=== PATIENT | female | born 1945 | race Caucasian/White ===

== ENCOUNTER → 2016-12-28 | Outpatient (CLI) | payer MEDICARE | END | disposition home or self-care (01) | LOC: RAH 08:10 | PROVIDERS: ATTEND Internal Medicine Hematology & Oncology | DX: R22.9 Localized swelling, mass and lump, unspecified (principal); Z79.82 Long term (current) use of aspirin; Z88.0 Allergy status to penicillin; Z86.010 Personal history of colon polyps; Z85.3 Personal history of malignant neoplasm of breast; Z87.891 Personal history of nicotine dependence | CPT/HCPCS: 38505 ==

== ENCOUNTER → 2019-05-09 | Outpatient (CLI) | payer MEDICARE ==
[~2019-05-09] MED LIST: APIX5TAB PO; CALC PO; FIBER PO; HYDR-4457 PO; IOHEXOL 350 MG/ML 100ML INFUS..BTL IV ONE; LEVO25TA54 PO; METO-391 PO; ONDA4TAB4 PO; POTASSIUM PO; VIT D PO
== END | disposition home or self-care (01) ==
LOC: RAH 09:23
PROVIDERS: ATTEND Internal Medicine Gastroenterology
DX: N13.30 Unspecified hydronephrosis (principal); N13.4 Hydroureter; I51.7 Cardiomegaly
CPT/HCPCS: 74178; Q9967

== ENCOUNTER → 2019-05-16 | Outpatient (CLI) | payer MEDICARE ==
[~2019-05-16] MED LIST changes: -IOHEXOL 350 MG/ML 100ML INFUS..BTL IV ONE
[2019-05-16 15:15] LABS: BASOPHILS % (AUTO) 0.6 % (0.0-5.0); EOSINOPHILS % (AUTO) 1.5 % (0.0-8.0); HEMATOCRIT 41.6 % (36-48); LYMPHOCYTES % (AUTO) 29.5 % (21.0-51.0); MEAN CORPUSCULAR HEMOGLOBIN 30.2 pg (27.0-33.0); MEAN CORPUSCULAR VOLUME 94.5 fL (79-99); MONOCYTES % (AUTO) 7.8 % (3.0-13.0); NEUTROPHILS % (AUTO) 60.2 % (40.0-77.0); PLATELET COUNT (AUTO) 312 K/uL (130-400); RED CELL DISTRIBUTION WIDTH 12.8 % (11.0-15.5); WHITE BLOOD COUNT (AUTO) 7.8 K/uL (4.8-10.8)
[2019-05-16 15:33] LABS: ALBUMIN 4.1 g/dL (3.5-5.0); BILIRUBIN,TOTAL 0.3 mg/dL (0.2-1.0); CREATININE 1.6 mg/dL (0.5-1.5); POTASSIUM 4.2 mmol/L (3.5-5.1); TOTAL PROTEIN, SERUM 7.9 g/dL (6.0-8.3)
== END | disposition home or self-care (01) ==
LOC: RAH 14:06
PROVIDERS: ATTEND Obstetrics & Gynecology
DX: R10.2 Pelvic and perineal pain (principal); R19.00 Intra-abdominal and pelvic swelling, mass and lump, unspecified site
CPT/HCPCS: 36415; 76830; 80053; 82378; 85025; 86304; A6260

== ENCOUNTER 2019-10-07 05:05 | Inpatient (IN) | payer MEDICARE ==
[~2019-10-07] VITALS: Ht 160 cm; Wt 59.6 kg
[2019-10-07] MEDS ORDERED: DILTIAZEM HCL 5 MG/ML 10 ML VIAL IV ONE (05:36)
[2019-10-07] MEDS ORDERED: DILTIAZEM HCL 125 MG/25 ML VIAL IV ONE (05:37)
[2019-10-07] MEDS ORDERED: MORPHINE SULFATE 4 MG/1ML SYG ONE (05:38)
[2019-10-07 05:39] LABS: BASOPHILS % (AUTO) 0.2 % (0.0-5.0); EOSINOPHILS % (AUTO) 0.5 % (0.0-8.0); HEMATOCRIT 36.2 % (36-48); LYMPHOCYTES % (AUTO) 7.4 % (21.0-51.0); MEAN CORPUSCULAR HEMOGLOBIN 29.3 pg (27.0-33.0); MEAN CORPUSCULAR HGB CONC 32.6 g/dL (32.0-36.0); MEAN CORPUSCULAR VOLUME 89.8 fL (79-99); MONOCYTES % (AUTO) 5.6 % (3.0-13.0); NEUTROPHILS % (AUTO) 85.8 % (40.0-77.0); PLATELET COUNT (AUTO) 617 K/uL (130-400); RED BLOOD CELL COUNT(AUTO) 4.03 MIL/uL (4.00-5.50); RED CELL DISTRIBUTION WIDTH 15.3 % (11.0-15.5); WHITE BLOOD COUNT (AUTO) 17.2 K/uL (4.8-10.8)
[2019-10-07] MEDS ORDERED: SODIUM CHLORIDE 0.9% 100 ML IV ONE (05:39)
[2019-10-07 05:54] LABS: PARTIAL THROMBOPLASTIN TIME 24.4 SEC (26.3-35.5); PROTHROMBIN TIME 10.8 SEC (9.6-11.6)
[2019-10-07 06:10] LABS: ALBUMIN 3.5 g/dL (3.5-5.0); BILIRUBIN,TOTAL 0.6 mg/dL (0.2-1.0); CREATININE 1.3 mg/dL (0.5-1.5); TOTAL PROTEIN, SERUM 7.9 g/dL (6.0-8.3)
[2019-10-07] MEDS ORDERED: ZOSYN 3.375GM+NS 50ML 50 ML IV ONE (06:19)
[2019-10-07] MEDS ORDERED: POTASSIUM CHLORIDE 20MEQ/100ML 100 ML IV ONE (06:38)
[2019-10-07] MEDS ORDERED: LIDOCAINE HCL 2% VISCOUS 15 ML UDCUP ONE (06:38)
[2019-10-07] MEDS ORDERED: LORAZEPAM 2 MG/ML 1 ML VIAL ONE (07:15)
[2019-10-07 10:45] VITALS: BP 106/53
--- NOTE | 2019-10-07 10:50 | NUR ---
CARDIO CONSULT WITH [facility] CALLED IN BY BRENTON LYLE. AWAITING 'S CALLBACK AT EXT [phone].
[2019-10-07] MEDS ORDERED: METO-409 PO (11:03)
[2019-10-07] MEDS ORDERED: LEVO88TA7 PO (11:03)
[2019-10-07] MEDS ORDERED: HYDR-4060 PO (11:03)
[2019-10-07] MEDS: LACTATED RINGERS 1000ML 1,000 ML IV SCH ×2 (11:04→20:43)
[2019-10-07] MEDS: METOPROLOL SUCCINATE 50 MG TAB.SR.24H PO SCH ×2 (14:15→14:27)
[2019-10-07] MEDS: POTASSIUM CHLORIDE 20MEQ/100ML 100 ML IV PRN (14:28)
[2019-10-07] MEDS: LIDOCAINE HCL-MPF 1% 2ML VIAL IV PRN (14:28)
--- NOTE | 2019-10-07 15:00 | NUR ---
DR. VELAZQUEZ IS IN TO SEE PATIENT. CONTINUE LOW INTERMITTENT WALL SUCTION FOR NOW.
--- NOTE | 2019-10-07 15:56 | NUR ---
PT NOTED WITH STICKY BLOOD TINGED VAGINAL DISCHARGE. PER PT, THIS IS NOT NEW. SHE'S BEEN HAVING BLOODY VAGINAL DISCHARGE SINCE PLACEMENT OF COLOSTOMY IN JUNE 2019. Addendum: 10/07/19 at 1600 by RENE CLARK RN RN Amended: Links added.
[2019-10-07 16:00] VITALS: BP 129/57
--- NOTE | 2019-10-07 17:15 | NUR ---
PT TELE REMAINS AFIB 100-110'S. INCREASED DILTIAZEM TO 7.5MG/HR.
[2019-10-07] MEDS ORDERED: METOPROLOL TARTRATE 1 MG/ML 5ML VIAL IV PRN (18:30)
[2019-10-07] MEDS ORDERED: METOPROLOL TARTRATE 1 MG/ML 5ML VIAL IV ONE (18:40)
[2019-10-07 18:43] VITALS: BP 100/51
--- NOTE | 2019-10-07 19:05 | NUR ---
Received patient on Cardizem drip @ 10 ml/hr with RT NGT to low intermittent suction, noted greenish colored drainage .
[2019-10-07 19:47] VITALS: BP 106/49
[2019-10-07 23:28] LABS: APPEARANCE,URINE Turbid (CLEAR); BILIRUBIN,URINE Negative (NEGATIVE); COLOR,URINE Dark Yellow (YELLOW); GLUCOSE, URINE (UA) Negative (NEGATIVE); KETONES,URINE Trace mg/dL (NEGATIVE); LEUKOCYTE ESTERASE ,URINE Moderate (NEGATIVE); NITRATE,URINE Negative (NEGATIVE); OCCULT BLOOD,URINE Large (NEGATIVE); PH,URINE 5.5 (5.0-8.0); PROTEIN,URINE 300 mg/dL (NEGATIVE)
[2019-10-07 23:45] LABS: BACTERIA,URINE Many /HPF (None Seen); RBC,URINE TNTC /HPF (0-1); WBC,URINE TNTC /HPF (0-1); YEAST,URINE BUDDING Moderate /HPF (None Seen)
[2019-10-07 23:50] VITALS: BP 124/68
[2019-10-08] MEDS ORDERED: HYDROMORPHONE 1 MG/1 ML AMP ONE (00:49)
--- NOTE | 2019-10-08 01:00 | NUR ---
NGT found already out and patient said she removed it and refused to be reinserted with new NGT, she said she does not want it anymore.
[2019-10-08] MEDS: DILTIAZEM 125MG+100 ML NS 125 ML IV SCH (01:30)
[2019-10-08 03:15] VITALS: BP 97/50
[2019-10-08 05:00] LABS: BASOPHILS % (AUTO) 0.4 % (0.0-5.0); EOSINOPHILS % (AUTO) 1.7 % (0.0-8.0); HEMATOCRIT 29.4 % (36-48); LYMPHOCYTES % (AUTO) 9.7 % (21.0-51.0); MEAN CORPUSCULAR HEMOGLOBIN 29.3 pg (27.0-33.0); MEAN CORPUSCULAR HGB CONC 31.6 g/dL (32.0-36.0); MEAN CORPUSCULAR VOLUME 92.7 fL (79-99); MONOCYTES % (AUTO) 5.8 % (3.0-13.0); NEUTROPHILS % (AUTO) 82.1 % (40.0-77.0); PLATELET COUNT (AUTO) 440 K/uL (130-400); RED BLOOD CELL COUNT(AUTO) 3.17 MIL/uL (4.00-5.50); RED CELL DISTRIBUTION WIDTH 15.5 % (11.0-15.5); WHITE BLOOD COUNT (AUTO) 14.5 K/uL (4.8-10.8)
[2019-10-08 05:26] LABS: ALBUMIN 2.7 g/dL (3.5-5.0); BILIRUBIN,TOTAL 0.5 mg/dL (0.2-1.0); CREATININE 1.5 mg/dL (0.5-1.5); POTASSIUM 3.4 mmol/L (3.5-5.1); TOTAL PROTEIN, SERUM 6.3 g/dL (6.0-8.3)
[2019-10-08] MEDS: LIDOCAINE HCL-MPF 1% 2ML VIAL IV PRN ×2 (06:23→08:54)
[2019-10-08] MEDS: LACTATED RINGERS 1000ML 1,000 ML IV SCH ×2 (06:23→14:35)
[2019-10-08] MEDS: POTASSIUM CHLORIDE 20MEQ/100ML 100 ML IV PRN (06:23)
--- NOTE | 2019-10-08 06:50 | NUR ---
was called and notified eulogio patient pulled out her NGT and refused to have it back on and Colostomy is now noted with BM.She said to continue having patient on NPO.
[2019-10-08 07:52] VITALS: BP 105/51
[2019-10-08] MEDS: PANTOPRAZOLE 40 MG/VIAL IVP SCH (08:45)
[2019-10-08] MEDS: METOPROLOL SUCCINATE 50 MG TAB.SR.24H PO SCH (08:45)
[2019-10-08] MEDS: ENOXAPARIN SODIUM 40 MG/0.4 ML SYRINGE SQ SCH (08:46)
[2019-10-08] MEDS: ONDANSETRON HCL 4 MG/2 ML VIAL IVP PRN (11:24)
[2019-10-08] MEDS: LEVOTHYROXINE 88 MCG TABLET PO SCH (11:24)
[2019-10-08 11:51] VITALS: BP 120/65
[2019-10-08] MEDS: ACETAMINOPHEN 325 MG TAB PO PRN (13:13)
[2019-10-08] MEDS ORDERED: METOCLOPRAMIDE 10 MG/2 ML VIAL ONE (15:27)
[2019-10-08] MEDS: METOCLOPRAMIDE 10 MG/2 ML VIAL IVP SCH ×2 (15:33→23:18)
[2019-10-08] MEDS: HYDROMORPHONE HCL 2 MG/ML VIAL IVP PRN ×2 (15:56→20:23)
[2019-10-08 16:08] VITALS: BP 120/65
--- NOTE | 2019-10-08 16:42 | NUR ---
DC PLAN VISITED WITH PATIENT. PATIENT LIVES WITH SPOUSE. INDEPENDENT ABLE TO PERFORM ADL'S. PATIENT HAS NO SERVICES OR DME'S. FEELS SAFE TO RETURN HOME. Addendum: 10/08/19 at 1646 by FAVIO GREY RN CM Amended: Links added.
[2019-10-08 20:11] VITALS: BP 115/65
[2019-10-09 00:22] VITALS: BP 111/61
[2019-10-09] MEDS: LACTATED RINGERS 1000ML 1,000 ML IV SCH ×3 (02:33→22:15)
[2019-10-09] MEDS: METOCLOPRAMIDE 10 MG/2 ML VIAL IVP SCH ×4 (05:22→22:22)
[2019-10-09] MEDS: HYDROMORPHONE HCL 2 MG/ML VIAL IVP PRN ×3 (05:23→22:22)
[2019-10-09] MEDS: LEVOTHYROXINE 88 MCG TABLET PO SCH (05:43)
[2019-10-09 05:47] VITALS: BP 115/60
[2019-10-09] MEDS ORDERED: LEVOTHYROXINE 88 MCG TABLET PO SCH (07:30)
[2019-10-09 08:00] VITALS: BP 133/71
[2019-10-09] MEDS: ENOXAPARIN SODIUM 40 MG/0.4 ML SYRINGE SQ SCH (09:25)
[2019-10-09] MEDS: METOPROLOL SUCCINATE 50 MG TAB.SR.24H PO SCH (09:25)
[2019-10-09] MEDS: PANTOPRAZOLE 40 MG/VIAL IVP SCH (10:14)
[2019-10-09 12:00] VITALS: BP 146/77
[2019-10-09] MEDS: FENTANYL 25 MCG/HR PATCH TD SCH (12:44)
[2019-10-09] MEDS ORDERED: MAG HYDROX/AL HYDROX/SIMETH ES 30 ML SUSP UDCUP PO PRN (16:45)
[2019-10-09] MEDS: ONDANSETRON HCL 4 MG/2 ML VIAL IVP PRN (16:58)
[2019-10-09 17:00] VITALS: BP 130/77
[2019-10-09 19:52] VITALS: BP 124/74
[2019-10-10] VITALS (8 sets, daily range): BP systolic 98–128; BP diastolic 60–86
[2019-10-10] MEDS: LEVOTHYROXINE 88 MCG TABLET PO SCH (05:16)
[2019-10-10] MEDS: METOCLOPRAMIDE 10 MG/2 ML VIAL IVP SCH ×3 (05:16→17:12)
[2019-10-10] MEDS: METOPROLOL SUCCINATE 50 MG TAB.SR.24H PO SCH (07:58)
[2019-10-10] MEDS: LACTATED RINGERS 1000ML 1,000 ML IV SCH ×3 (07:59→18:29)
[2019-10-10] MEDS: ENOXAPARIN SODIUM 40 MG/0.4 ML SYRINGE SQ SCH (07:59)
[2019-10-10] MEDS: PANTOPRAZOLE 40 MG/VIAL IVP SCH ×2 (09:00→11:30)
[2019-10-10] MEDS: ONDANSETRON HCL 4 MG/2 ML VIAL IVP PRN (10:23)
--- NOTE | 2019-10-10 11:37 | NUR ---
Chidi LIM NP, IN ROOM ASSESSING/SPEAKING WITH PT. RE:PLAN OF CARE; QUESTIONS ANSWERED AND PT. VERBALIZED UNDERSTANDING.
--- NOTE | 2019-10-10 12:20 | NUR ---
DR. Soy REHMAN SPEAKING WITH DR. VELAZQUEZ VIA TELEPHONE RE:PT.'S STATUS AND C/O NAUSEA AND PAIN AT COLOSTOMY SITE.
--- NOTE | 2019-10-10 13:11 | NUR ---
DAVION recd trigger: Consult Dr. Abe Hudson for Palliative Care DAVION phoned/spoke with primary nurse Jorge who reported that Dr. Meneses is contacting Dr. Hudson himself. DAVION will follow up with pt/spouse post Dr. Hudson consult. CM made aware.
[2019-10-10] MEDS: DILTIAZEM 125MG+100 ML NS 125 ML IV SCH (17:15)
[2019-10-10] MEDS: ACETAMINOPHEN 325 MG TAB PO PRN (17:15)
[2019-10-10 19:46] LABS: INR 1.17 (0.85-1.15); PROTHROMBIN TIME 12.6 SEC (9.6-11.6)
[2019-10-11] MEDS: METOCLOPRAMIDE 10 MG/2 ML VIAL IVP SCH ×5 (00:34→23:59)
[2019-10-11 03:41] VITALS: BP 123/67
[2019-10-11] MEDS: LACTATED RINGERS 1000ML 1,000 ML IV SCH ×3 (04:58→23:59)
[2019-10-11] MEDS: LEVOTHYROXINE 88 MCG TABLET PO SCH (06:09)
[2019-10-11 07:30] VITALS: BP 135/58
[2019-10-11] MEDS: METOPROLOL SUCCINATE 50 MG TAB.SR.24H PO SCH (08:27)
[2019-10-11] MEDS: ENOXAPARIN SODIUM 40 MG/0.4 ML SYRINGE SQ SCH (08:28)
[2019-10-11] MEDS: PANTOPRAZOLE 40 MG/VIAL IVP SCH (09:00)
[2019-10-11 11:00] VITALS: BP 125/67
[2019-10-11 11:22] LABS: BASOPHILS % (AUTO) 0.4 % (0.0-5.0); EOSINOPHILS % (AUTO) 0.4 % (0.0-8.0); LYMPHOCYTES % (AUTO) 13.3 % (21.0-51.0); MEAN CORPUSCULAR HEMOGLOBIN 29.4 pg (27.0-33.0); MEAN CORPUSCULAR HGB CONC 32.2 g/dL (32.0-36.0); MEAN CORPUSCULAR VOLUME 91.2 fL (79-99); MONOCYTES % (AUTO) 8.3 % (3.0-13.0); NEUTROPHILS % (AUTO) 77.2 % (40.0-77.0); PLATELET COUNT (AUTO) 415 K/uL (130-400); RED BLOOD CELL COUNT(AUTO) 2.96 MIL/uL (4.00-5.50); RED CELL DISTRIBUTION WIDTH 15.2 % (11.0-15.5); WHITE BLOOD COUNT (AUTO) 8.6 K/uL (4.8-10.8)
[2019-10-11 11:37] LABS: ALBUMIN 2.6 g/dL (3.5-5.0); BILIRUBIN,TOTAL 0.4 mg/dL (0.2-1.0); TOTAL PROTEIN, SERUM 6.1 g/dL (6.0-8.3)
[2019-10-11] MEDS: HYDROMORPHONE HCL 2 MG/ML VIAL IVP PRN ×3 (13:21→22:03)
--- NOTE | 2019-10-11 14:30 | NUR ---
Hospice-SW met with pt. who is alert and oriented. Pt. contacted her spouse and placed him on speaker phone so that he could listen to this worker's visit. SW discussed order for hospice referral and OOHDNR; pt. and spouse voiced an understanding. SW explained services provided by hospice agency i.e, DME equipment, medication, medical team of nurses, TRAINING AND DEVELOPMENT DIRECTOR, SW and Medicare Sales Executive. SW provided list of hospice agencies as well as pamphlets for multiple agencies. Pt. and spouse requested SW return in 30min so that they may contact friends and make inquiries into hospice choice. 1500-SW returned and was provided with [facility] as choice for hospice. Pt. signed choice letter. SW contacted security to serve as witness for OOHDNR; OOHDNR completed by pt. and placed in chart for physician signature; primary nurse KEITH Sanchez made aware. SW provided comfort/empathic listening as pt. spoke of her terminal illness, her cats and spouse. Pt. voiced no other needs or concerns at this time. Referral faxed to [facility]; Tasha confirmed receipt of referral. SW will follow up tomorrow for any further needs.
[2019-10-11] MEDS: ONDANSETRON HCL 4 MG/2 ML VIAL IVP PRN (22:02)
[2019-10-12] MEDS: METOCLOPRAMIDE 10 MG/2 ML VIAL IVP SCH ×2 (05:18→12:19)
[2019-10-12] MEDS: ONDANSETRON HCL 4 MG/2 ML VIAL IVP PRN ×2 (05:26→05:27)
[2019-10-12 07:37] VITALS: BP 138/71
[2019-10-12] MEDS: METOPROLOL SUCCINATE 50 MG TAB.SR.24H PO SCH (08:17)
[2019-10-12] MEDS: LEVOTHYROXINE 88 MCG TABLET PO SCH (08:18)
[2019-10-12] MEDS: ENOXAPARIN SODIUM 40 MG/0.4 ML SYRINGE SQ SCH (08:18)
[2019-10-12] MEDS: PANTOPRAZOLE 40 MG/VIAL IVP SCH (08:18)
[2019-10-12] MEDS ORDERED: DILT120C95 PO (09:42)
[2019-10-12] MEDS ORDERED: DILTIAZEM HCL 120 MG CAP.SR.24H PO SCH (10:00)
--- NOTE | 2019-10-12 10:00 | NUR ---
cm note spoke to pt and states she wishes to go home with [facility], and prefers to go via private vehicle, instead of ambulance. calll made to [facility] and per charles sánchez states pt is accepted. updated primary nurse Aisha on above.
--- NOTE | 2019-10-12 11:16 | NUR ---
DR. STEINBERG ORDERED TO REPLACE POTASSIUM BEFORE DISCHARGE AND THAT HE WILL ALSO ADD CARDIZEM 120 MG TO CONTROL HER HEART RATE. NOTIFIED HIM THAT PATIENT IS ALREADY IS HOSPICE AND ACCEPTED BY [facility].
[2019-10-12] MEDS: FENTANYL 25 MCG/HR PATCH TD SCH (12:18)
[2019-10-12] MEDS: POTASSIUM CHLORIDE 20MEQ/100ML 100 ML IV PRN (12:20)
--- NOTE | 2019-10-12 16:09 | NUR ---
call report to [facility] at this time.
== END 2019-10-12 16:00 | DRG 389 ==
LOC: EDH 05:05 → EDHIP 07:15 → DAHIP 10:37 → 3AH 10-09 23:45
PROVIDERS: ADMIT Internal Medicine Hematology & Oncology; ATTEND Internal Medicine Hematology & Oncology
PROC: 0D9670Z Drainage of Stomach with Drainage Device, Via Natural or Artificial Opening (ICD-10-PCS; principal; 2019-10-07)
PROC: 05HF33Z Insertion of Infusion Device into Left Cephalic Vein, Percutaneous Approach (ICD-10-PCS; 2019-10-07)
DX: K56.690 Other partial intestinal obstruction (principal); C78.00 Secondary malignant neoplasm of unspecified lung; C56.9 Malignant neoplasm of unspecified ovary; I48.20 Chronic atrial fibrillation, unspecified; C19 Malignant neoplasm of rectosigmoid junction; C79.82 Secondary malignant neoplasm of genital organs; E03.9 Hypothyroidism, unspecified; E87.6 Hypokalemia; D72.829 Elevated white blood cell count, unspecified; Z51.5 Encounter for palliative care; Z79.01 Long term (current) use of anticoagulants; Z79.899 Other long term (current) drug therapy; Z80.3 Family history of malignant neoplasm of breast; Z92.21 Personal history of antineoplastic chemotherapy; Z92.3 Personal history of irradiation; Z93.3 Colostomy status; Z88.0 Allergy status to penicillin; Z88.5 Allergy status to narcotic agent; Z91.041 Radiographic dye allergy status; Z66 Do not resuscitate
CPT/HCPCS: 36415; 71045; 74176; 80053; 81001; 82550; 82948; 83605; 83690; 84132; 84484; 85025; 85610; 85730; 87040; 87088; 93005; 93306; 93356; 97039; C9113; G0378; J1170; J1650; J2060; J2270; J2405; J2543; J2765; J3480; J3490; J7120